=== PATIENT | male | born 1990 | race Two or more races ===

== ENCOUNTER 2018-12-11 21:37 | Emergency (ER) | payer OTHER ==
[~2018-12-11] VITALS: Ht 167.6 cm; Wt 86.2 kg
[2018-12-11 21:45] VITALS: BP 124/81
--- NOTE | 2018-12-11 22:04 | Emergency Room Report ---
History of Present Illness General Chief Complaint: Upper Extremity Injury Source: Patient Present Illness HPI Is a 28-year-old male who is right-hand dominant. He presents with chief complaint of right shoulder pain. He had dislocated shoulder 2 years ago. Since then sometime that would spontaneous dislocated and he will reduce it himself. He was at work today cleaning and wiping on the table when it popped out. He went to the back and do so. And then it occurred again when he went back outside to clean the table. He was sent here to be evaluated. He has some tightness to the shoulder area. No other trauma. No fever chills but no nausea no vomiting. Pain is 5 out of 10. Movement made it worse. Rest made it better. Allergies: Coded Allergies: No Known Allergies (Unverified , 12/11/18) Patient History Past Medical History: see triage record, old chart reviewed Past Surgical History: none Pertinent Family History: none Social History: Denies: smoking Immunizations: other Reviewed Nursing Documentation: PMH: Agreed; PSxH: Agreed Nursing Documentation-PMH Past Medical History: No History, Except For Review of Systems Eye: Denies: eye pain, blurred vision ENT: Denies: ear pain, nose congestion, throat swelling Respiratory: Denies: cough, shortness of breath Cardiovascular: Denies: chest pain, palpitations Gastrointestinal: Denies: abdominal pain, diarrhea, nausea, vomiting Musculoskeletal: Reports: joint pain; Denies: back pain Skin: Denies: rash Neurological: Denies: headache, numbness Endocrine: Denies: increased thirst, increased urine Hematologic/Lymphatic: Denies: easy bruising All Other Systems: negative except mentioned in HPI Physical Exam Vital Signs Date Time Temp Pulse Resp B/P (MAP) Pulse Ox O2 Delivery O2 Flow Rate FiO2 12/11/18 21:40 98.1 72 12 124/81 94 Room Air vitals normal Sp02 EP Interpretation: reviewed, normal General Appearance: well appearing, no apparent distress, alert Head: normocephalic, atraumatic Eyes: bilateral eye PERRL, bilateral eye EOMI ENT: hearing grossly normal, normal pharynx Neck: full range of motion, supple, no meningismus Respiratory: chest non-tender, lungs clear, normal breath sounds Cardiovascular #1: regular rate, rhythm, no murmur Gastrointestinal: normal bowel sounds, non tender, no mass, no organomegaly, no bruit, non-distended Musculoskeletal: back normal, gait/station normal, normal range of motion, other - Right shoulder with tenderness with range of motion exercises. Neurologic: alert, oriented x3 Psychiatric: mood/affect normal Skin: warm/dry Procedures Splinting Splinting : Consent: Verbal Location: rt shoulder Pre-Made Type: sling Pre-Proc Neuro Vasc Exam: normal Post-Proc Neuro Vasc Exam: normal Patient Tolerated: Well Complications: None Medical Decision Making Diagnostic Impression: Primary Impression: Shoulder dislocation, recurrent Qualified Codes: M24.411 - Recurrent dislocation, right shoulder ER Course Patient presents with symptoms consistent with a recurrent right shoulder dislocation with reduction by patient. There is no fracture or dislocation now. We'll discharge home. Other X-Ray Diagnostic Results Other X-Ray Diagnostic Results : X-Ray ordered: Right shoulder x-rays # of Views/Limited Vs Complete: 3 View Indication: Pain EP Interpretation: Yes Interpretation: no dislocation, no soft tissue swelling, no fractures Impression: No acute disease Electronically Signed by: Willam Ulrich MD Last Vital Signs Date Time Temp Pulse Resp B/P (MAP) Pulse Ox O2 Delivery O2 Flow Rate FiO2 12/11/18 21:40 98.1 72 12 124/81 94 Room Air Status: improved Disposition: HOME, SELF-CARE Condition: Stable Scripts Ibuprofen* (MOTRIN*) 600 Mg Tablet 600 MG ORAL THREE TIMES A DAY, #30 TAB 0 Refills Prov: Willam Ulrich MD 12/11/18 Additional Instructions: Follow-up with your doctor in 7 days. You may need a referral to see orthopedic for further treatment. Return if worse. Willam Ulrich MD Dec 11, 2018 22:04
[2018-12-11] MEDS ORDERED: IBUPROFEN600 MG ORAL (22:11)
[2018-12-11 22:24] VITALS: BP 123/99
--- NOTE | 2018-12-11 22:31 | Diagnostic Imaging Report ---
EXAM: XR Right Shoulder Complete, 2 or More Views CLINICAL HISTORY: PAIN TECHNIQUE: Two or more views of the right shoulder. COMPARISON: No relevant prior studies available. FINDINGS: Bones/joints: Unremarkable. No acute fracture. No dislocation. Soft tissues: Unremarkable. IMPRESSION: Normal study.
== END 2018-12-11 22:24 | disposition home or self-care (01) ==
LOC: EMR 21:57
DX: M24.411 Recurrent dislocation, right shoulder (principal); X50.9XXA Other and unspecified overexertion or strenuous movements or postures, initial encounter; Y92.9 Unspecified place or not applicable; Y99.0 Civilian activity done for income or pay
CPT/HCPCS: 29105; 99283